=== PATIENT | male | born 1970 | race Asian ===

== ENCOUNTER 2023-04-13 09:03 | Emergency (ER) | payer BC ==
[~2023-04-13] VITALS: Ht 190.5 cm; Wt 73.4 kg
[2023-04-13 13:27] VITALS: BP 133/74; TEMP 98.9; O2SAT 97
== END 2023-04-13 13:27 | disposition home or self-care (01) ==
LOC: M ED 09:03
DX: K40.90 Unilateral inguinal hernia, without obstruction or gangrene, not specified as recurrent (principal)

== ENCOUNTER 2023-05-08 14:18 | Day surgery (SDC) | payer BC ==
[~2023-05-08] VITALS: Ht 182.9 cm; Wt 70.8 kg
[~2023-05-08 14:18] MED LIST: HEPARIN SOD (PORCINE) 5000UNITS/ML 1ML VIAL/SYRINGE SQ ONE; ceFAZolin SOD 2 GM in IV 1 EA IV ONE
[2023-05-08] MEDS ORDERED: LR 1,000 ML IV SCH ×2 (14:40→18:25)
[2023-05-08] MEDS ORDERED: propofoL 200 MG/20 ML VIAL As Ordered ONE (17:42)
[2023-05-08] MEDS ORDERED: ROCURONIUM BROMIDE 50MG/5ML VIAL As Ordered ONE (17:42)
[2023-05-08] MEDS ORDERED: dexmedeTOMIDine (4MCG/ML)200MCG/50ML BTL (PRECEDEX) As Ordered ONE (17:42)
[2023-05-08] MEDS ORDERED: ACETAMINOPHEN 1000MG 100ML IV BAG As Ordered ONE (17:42)
[2023-05-08] MEDS ORDERED: fentaNYL 100 MCG/2 ML INJECTION As Ordered ONE (17:42)
[2023-05-08] MEDS ORDERED: ONDANSETRON 4MG 2ML VIAL As Ordered ONE (17:42)
[2023-05-08] MEDS ORDERED: MIDAZOLAM INJ 2MG/2ML VIAL As Ordered ONE (17:42)
[2023-05-08] MEDS ORDERED: LIDOCAINE 2% 100MG/5ML SDV (FOR ANES.) As Ordered ONE (17:42)
[2023-05-08] MEDS ORDERED: SUGAMMADEX SODIUM 500 MG/5 ML VIAL (BRIDION) As Ordered ONE (17:43)
[2023-05-08] MEDS ORDERED: KETOROLAC 60MG 2ML VIAL As Ordered ONE (17:43)
[2023-05-08] MEDS ORDERED: oxyCODONE 5MG TAB PO PRN (18:25)
[2023-05-08] MEDS ORDERED: fentaNYL 100 MCG/2 ML INJECTION IV PRN (18:25)
[2023-05-08] MEDS ORDERED: ONDANSETRON 4MG 2ML VIAL IV PRN (18:25)
[2023-05-08] MEDS ORDERED: HYDROMORPHONE HCL 0.5 MG/ 0.5 ML SYRINGE IV PRN (18:25)
[2023-05-08 19:57] VITALS: BP 120/74; TEMP 97.8; O2SAT 98
== END 2023-05-08 20:06 | disposition home or self-care (01) ==
LOC: M SDC 14:18
PROVIDERS: ATTEND Surgery
DX: K40.90 Unilateral inguinal hernia, without obstruction or gangrene, not specified as recurrent (principal)
CPT/HCPCS: 49650; 93005; C1781; J0131; J0665; J0690; J1100; J1885; J2250; J2405; J3010; S2900